=== PATIENT | female | born 1955 | race Caucasian/White ===

== ENCOUNTER 2018-08-03 09:27 | Inpatient (IN) ==
--- NOTE | 2018-08-03 11:34 | Diag Imaging Result Doc PS360 ---
EXAM: CHEST-2 VIEWS 08/03/2018 HISTORY: AMS TECHNIQUE: PA and lateral chest COMMENT: There is patchy alveolar opacity in the superior segments of both lower lobes as well as in the lingula. The heart size and pulmonary vascularity are within normal limits. IMPRESSION: Pulmonary edema and/or pneumonia. Electronically signed by Baljeet Fong 08/03/2018 11:32 AM
--- NOTE | 2018-08-03 11:43 | EKG Report ---
Test Performed on : 08/03/2018 11:16:44 AM Test Reason : AMS Blood Pressure : / mmHG Vent. Rate : 068 BPM Atrial Rate : 068 BPM P-R Int : 186 ms QRS Dur : 092 ms QT Int : 394 ms P-R-T Axes : 058 053 028 degrees QTc Int : 418 ms Sinus rhythm. with premature atrial complexes. Possible Left atrial enlargement Low voltage QRS Borderline ECG No previous ECGs available Confirmed by Leanne LOTT, Alex Leonard ([id number]) on 08/03/2018 3:19:49 PM
[2018-08-03] MEDS ORDERED: NS + KCL 20 MEQ 1,000 ML IV SCH (12:00)
--- NOTE | 2018-08-03 12:09 | Diag Imaging Result Doc PS360 ---
EXAM: CT HEAD W/O CONTRAST INDICATION: AMS TECHNIQUE: This exam was performed using automated exposure control, adjustment of mA or kV according to patient size, and/or use of iterative reconstruction technique. COMPARISON: None. FINDINGS: There is mild brain atrophy. There is no definite acute infarct given the limited sensitivity of CT versus MRI. There is no discrete intracranial mass, mass effect, or intracranial hemorrhage. The surrounding soft tissues and bony structures are essentially unremarkable. IMPRESSION: Mild brain atrophy but no definite acute intracranial pathology by CT. Electronically signed by Filiberto Bear 08/03/2018 12:07 PM
[2018-08-03 12:12] LABS: ALLEN TEST YES; BE 0.1 mmoll (-3.0-3.0); BLOOD TYPE ARTERIAL; HCO3-(ACT) 24.8 mmoll (20.0-26.0); METHB 0.6 % (0.0-1.5); MODALITY ROOM AIR; O2(CT) 15.6 mL/dL (15.0-23.0); PCO2(98.6) 39 mmHg (35-45); PO2(98.6) 53 mmHg (60-100); SAMPLE BLOOD; SAO2 91.2 % (95.0-100.0); THB 12.5 g/dL (11.5-17.4); pH(98.6) 7.41 (7.35-7.45)
[2018-08-03 12:15] LABS: O2HB 88.9 % (95.0-99.0)
[2018-08-03] MEDS: LOVENOX SUBQ SCH (13:11)
[2018-08-03] MEDS: SODIUM CHLORIDE 0.9% INJ SCH (13:11)
[2018-08-03] MEDS: ROCEPHIN 1 GM in NS 50 ML IV SCH (13:11)
[2018-08-03] MEDS: PROTONIX IV SCH (13:11)
[2018-08-03 14:09] LABS: BASO# 0.05 X1000 (0.0-0.2); BASO% 0.5 % (0.0-0.8); EOS# 0.07 X1000 (0.0-0.7); EOS% 0.6 % (0.0-10.0); HEMATOCRIT 36.7 % (37.0-47.0); HEMOGLOBIN 12.2 g/dL (12.0-16.0); IMM GRAN# 0.06 X1000 (0.0-0.04); IMM GRAN% 0.6 % (0.0-0.5); LYMPH# 1.28 X1000 (1.2-3.4); LYMPH% 11.9 % (20.5-51.1); MCH 32.6 PG (27-31); MCHC 33.2 g/dL (33-37); MCV 98.1 FL (81-99); MONO# 0.71 X1000 (0.11-0.59); MONO% 6.6 % (1.7-9.3); MPV 10.7 FL (7.4-10.4); NEUT# 8.61 X1000 (1.4-6.5); NEUT% 79.8 % (42.2-75.2); PLT 237 X1000 (130-400); RBC 3.74 XMIL (4.2-5.4); WBC 10.78 X1000 (4.8-10.8)
[2018-08-03 14:14] LABS: INR 0.98; PROTIME 13.7 Seconds (11.0-16.0)
[2018-08-03 14:29] LABS: ALB/GLOB RATIO 1.3; CALCIUM 9.3 mg/dL (8.8-10.2); CREATININE 1.4 mg/dL (0.5-0.9); POTASSIUM 3.1 mmol/L (3.5-5.1); TOTAL BILIRUBIN 0.56 mg/dL (0.20-1.00)
[2018-08-03 15:18] LABS: URINE SOURCE CLEAN CATCH
[2018-08-03 15:21] LABS: BILIRUBIN URINE NEGATIVE (NEGATIVE); BLOOD URINE NEGATIVE (NEGATIVE); COLOR YELLOW; GLUCOSE URINE NEGATIVE (NEGATIVE); KETONE URINE NEGATIVE (NEGATIVE); LEUKOCYTES URINE TRACE (NEGATIVE); NITRITE URINE NEGATIVE (NEGATIVE); PH URINE 5.5; PROTEIN URINE TRACE mg/dL (NEGATIVE); SP GRAVITY URINE 1.008; TURBIDITY URINE CLEAR (CLEAR); UROBILINOGEN URINE NORMAL (NORMAL)
[2018-08-03 15:22] LABS: UR EPITHELIAL CELLS <10 /HPF (<10); URINE BACTERIA NEGATIVE /HPF; URINE RBC <10 /HPF (<10); URINE WBC <10 /HPF (<10)
[2018-08-03] MEDS ORDERED: KLOR-CON PO ONE (15:42)
[2018-08-03] MEDS ORDERED: VENTOLIN HFA INH PRN (15:42)
[2018-08-03] MEDS ORDERED: MIRALAX PO PRN (15:42)
[2018-08-03] MEDS: NS + KCL 20 MEQ 1,000 ML IV SCH (19:16)
[2018-08-03] MEDS: PRAVACHOL PO SCH (20:22)
[2018-08-03] MEDS: LYRICA PO SCH (20:22)
[2018-08-03] MEDS: COENZYME Q10 PO SCH (20:22)
[2018-08-03] MEDS: LEVAQUIN 750 MG/D5W 750 MG/150 ML IVPB IV SCH (20:23)
[2018-08-03] MEDS: PERCOCET-5 PO SCH (20:23)
[2018-08-03] MEDS: DUONEB (A & A) INH SCH (22:58)
[2018-08-04] MEDS: NS + KCL 20 MEQ 1,000 ML IV SCH ×2 (01:21→16:24)
[2018-08-04] MEDS: DUONEB (A & A) INH SCH ×6 (04:29→21:10)
[2018-08-04] MEDS: LINZESS PO SCH (06:11)
[2018-08-04] MEDS: SYNTHROID PO SCH (06:11)
[2018-08-04 07:06] LABS: BASO# 0.03 X1000 (0.0-0.2); BASO% 0.4 % (0.0-0.8); EOS# 0.23 X1000 (0.0-0.7); EOS% 2.9 % (0.0-10.0); HEMATOCRIT 33.5 % (37.0-47.0); IMM GRAN# 0.09 X1000 (0.0-0.04); IMM GRAN% 1.2 % (0.0-0.5); LYMPH# 1.23 X1000 (1.2-3.4); LYMPH% 15.7 % (20.5-51.1); MCH 32.3 PG (27-31); MCHC 32.8 g/dL (33-37); MCV 98.2 FL (81-99); MONO# 0.68 X1000 (0.11-0.59); MONO% 8.7 % (1.7-9.3); MPV 10.5 FL (7.4-10.4); NEUT# 5.55 X1000 (1.4-6.5); NEUT% 71.1 % (42.2-75.2); PLT 233 X1000 (130-400); RBC 3.41 XMIL (4.2-5.4); RDW 11.8 % (11.5-14.5); WBC 7.81 X1000 (4.8-10.8)
[2018-08-04 07:45] LABS: AGAP 12; ALB/GLOB RATIO 1.3; ALBUMIN 3.5 g/dL (3.5-5.0); ALKALINE PHOSPHATASE 96 U/L (32-104); BUN 10 mg/dL (8-22); CALCIUM 8.6 mg/dL (8.8-10.2); CHLORIDE 103 mmol/L (98-107); COSMO 279; CREATININE 0.9 mg/dL (0.5-0.9); ESTIMATED GFR > 60; GLUCOSE 116 mg/dL (70-104); GOT 16 U/L (10-30); GPT 15 U/L (10-36); MAGNESIUM 1.8 mg/dL (1.5-2.7); POTASSIUM 4.2 mmol/L (3.5-5.1); SODIUM 140 mmol/L (136-145); TCO2 25 mmol/L (25-35); TOTAL BILIRUBIN 0.46 mg/dL (0.20-1.00); TOTAL PROTEIN 6.2 g/dL (6.3-8.3)
[2018-08-04] MEDS: ADVAIR 250/50 DISKUS INH SCH (07:52)
[2018-08-04] MEDS: SPIRIVA INH SCH (07:52)
--- NOTE | 2018-08-04 08:25 | Diag Imaging Result Doc PS360 ---
EXAM: CHEST-2 VIEWS INDICATION: hypoxia TECHNIQUE: 2 views COMPARISON: 08/03/2018 FINDINGS: The vague consolidations in the superior segments of both lower lobes are approximately stable. No new consolidation is identified. Cardiac silhouette is stable. IMPRESSION: Stable chest. Electronically signed by Filiberto Bear 08/04/2018 8:23 AM
[2018-08-04] MEDS: LOVENOX SUBQ SCH (10:45)
[2018-08-04] MEDS: PERCOCET-5 PO SCH ×2 (10:45→17:50)
[2018-08-04] MEDS: VITAMIN D PO SCH (10:46)
[2018-08-04] MEDS: DYAZIDE PO SCH (10:46)
[2018-08-04] MEDS: LYRICA PO SCH ×2 (10:46→20:03)
[2018-08-04] MEDS: CELEBREX PO SCH (10:46)
[2018-08-04] MEDS: THERA M PLUS PO SCH (10:46)
[2018-08-04] MEDS: SINGULAIR PO SCH (10:46)
[2018-08-04] MEDS: ROCEPHIN 1 GM in NS 50 ML IV SCH ×2 (10:47→11:25)
[2018-08-04] MEDS: PROTONIX IV SCH (10:47)
[2018-08-04] MEDS: FLONASE NAS SCH (10:47)
--- NOTE | 2018-08-04 11:05 | PROGRESS NOTE ---
DATE: 08/04/2018 SUBJECTIVE: Ms. Andrade is doing fair. The patient does have cough with scanty sputum production. The patient was complaining of not able to sleep well last night. Some leg pain. Her confusion is improving. No nausea or vomiting. No diarrhea, blood, or mucus in the stool. OBJECTIVE: Her vital signs noted. Neck supple. No JVD. Lungs: Bilateral occasional wheezing. CVS: S1 and S2 heard. Abdomen soft, globular. Bowel sounds present. Extremities: No cyanosis, clubbing. No acute DVT. TANK CAR MECHANIC: Alert, awake. Able to move all 4 limbs. LABORATORY DATA: Patient's lab data done today noted. Hemoglobin 11, hematocrit 33.5, WBC count 7.81, platelet count 233,000. Electrolytes were fairly benign. Her O2 saturation on room air at times was low. The patient is using her oxygen. PLAN: Consideration possible pneumonia. Her C-reactive protein was high. Repeat chest x-ray results reviewed. Altered mental status improving with oxygenation. Chronic pain, gastritis, and reflux disease. Overall plan discussed with the patient. I am going to ambulate the patient today. If clinical condition permits, we will plan discharging patient home soon. cc: Kurtis Lopes MD
[2018-08-04] MEDS: SODIUM CHLORIDE 0.9% INJ SCH (12:29)
[2018-08-04] MEDS: LEVAQUIN 750 MG/D5W 750 MG/150 ML IVPB IV SCH (20:03)
[2018-08-04] MEDS: PRAVACHOL PO SCH (20:03)
[2018-08-04] MEDS: COENZYME Q10 PO SCH (20:03)
[2018-08-05] MEDS: PERCOCET-5 PO SCH ×3 (03:42→20:28)
--- NOTE | 2018-08-05 03:55 | HISTORY AND PHYSICAL ---
Ms Andrade 63-year-old white female patient not feeling well last few days. The patient was complaining of feeling fatigued, tired. The patient claims she was sleeping most of time, increasing confusion, patient was disoriented, does have cough and chest congestion complaining of expectoration, feverish feeling, no typical. The patient claims she was sleeping most of the time. She had hard time even walking across the room. Urinary incontinence. The patient does have dull headache. No typical chest pain. I evaluated patient in the office. The patient claims sometimes she has to crawl to go to the bathroom she was that weak. She denied any diarrhea, no blood or mucus in the stool. No dysuria or hematuria. The patient denied using her pain medication more than prescribed. Blood pressure was law and her oral intake was poor. The patient lost some weight. No focal weakness. The patient did have generalized weakness. Because of her overall health I decided to admit patient for further care. Plan discussed with the patient and her and they are in agreement. The patient does have chronic back pain being followed up by pain managment MD. Does have at times abdominal pain, known case of COPD, chronic cough on bronchodilator treatment. The patient does have neuropathy pain in both the hand. ALLERGIES: Hydrocodone, latex and natural rubber. MEDICATIONS: Includes Lyrica, Diatide, Singulair, Flonase, Celebrex, Synthroid , Advair, Pravachol, . PAST MEDICAL HISTORY: Hypertension, hyperlipidemia, rhinitis, peripheral neuropathy, gastroesophageal reflux disease.[place] PERSONAL HISTORY: , lives with the , quit smoking in February, denied alcohol or substance use. PAST SURGICAL HISTORY: Patient had back surgery, tonsillectomy, hysterectomy, skin cancer removed, surgery for deviated nasal septum. FAMILY HISTORY: Noncontributory. PHYSICAL EXAMINATION: Middle-aged white female patient in mild distress. VITAL SIGNS: Blood pressure 108/57, pulse 126, respiration 20, temperature 98.1 degrees. SKIN: Normal turgor. No rash or petechiae. HEENT: Head atraumatic, normocephalic. [place] conjunctivae. Anicteric sclerae. Extraocular muscle movement normal. Fundus cannot be penetrated. Good oral hygiene. No tonsillopharyngeal congestion or exudate. Ears and nose benign. NECK: Supple. No JVD, thyromegaly or lymphadenopathy. CHEST: Bilateral good air entry present, bilateral occasional wheezing. CARDIOVASCULAR: S1 and S2 heard. No gallop or thrill. ABDOMEN: Soft, globular. Bowel sounds present. EXTREMITIES: No cyanosis, clubbing. No acute DVT. EQUIPMENT ASSOCIATE: Alert, awake, able to move all 4 limbs. Tenderness lumbosacral spine. LAB DATA: Leukocyte count 10.78, hemoglobin 12.2, hematocrit 36.9, platelet count 237,000, PT/INR 0.98. Blood gas did reveal hypoxemia, PA 7.41, oxyhemoglobin was 88.9 . Patient was started on oxygen. Electrolytes did reveal hypokalemia, BUN 24, creatinine 1.4 , ProBNP was 469. Urinalysis was benign. Chest x-ray did reveal possible pneumonia versus pulmonary edema. I did check her proBNP it was not impressive. I did CT scan of the head because of altered mental status and it did reveal mild brain atrophy but no definite acute intracranial pathology by CT. Patient admitted with altered mental status most likely due to hypoxemia. Patient does have chest congestion, cough, it is more suggestive of pneumonia than pulmonary edema. The patient was also hypoxemic. Her other problem includes chronic low back pain, hypothyroidism, gastritis and reflux disease, chronic low back pain, peripheral neuropathy, osteoarthritis. PLAN: Admit patient. IV hydration, IV antibiotics, bronchodilator treatment. Patient did have hypokalemia, will supplement potassium. Overall plan discussed with the patient and she is in agreement. cc: Kurtis Lopes MD [facility]
[2018-08-05] MEDS: DUONEB (A & A) INH SCH ×4 (05:56→21:05)
[2018-08-05] MEDS: SYNTHROID PO SCH (06:08)
[2018-08-05] MEDS: LINZESS PO SCH (06:08)
--- NOTE | 2018-08-05 07:19 | PROGRESS NOTE ---
DATE: 08/05/2018 SUBJECTIVELY: Ms. Andrade is doing fair. The patient is still feels some weakness. No high- grade fever or chills. Does have cough with yellowish expectoration. No nausea or vomiting. No dysuria or hematuria. Denied any diarrhea. Her vital signs noted. Blood pressure is low at times.Neck: Supple. No JVD. Lungs: Bilateral good air entry present. Few inspiratory crepitations. CVS: S1 and S2 heard. Abdomen: Soft, globular. Bowel sounds present. Extremities: No cyanosis, clubbing. No acute DVT. REGIONAL OPERATIONS MANAGER: Alert, awake. Able to move all 4 limbs. Vague tenderness lumbosacral spine. CONSIDERATION: 1. Bronchopneumonia. 2. Chronic low back pain. 3. Gastritis and reflux disease. 4. Osteoarthritis. 5. Hypothyroidism. PLAN: I am going to continue current treatment. Ambulate the patient in the room and hallway. Check appropriate lab in the morning. If clinical condition permits, we will plan discharging patient home maybe tomorrow. I am going to evaluate her for home oxygen requirement. cc: Kurtis Lopes MD
[2018-08-05] MEDS: ADVAIR 250/50 DISKUS INH SCH (07:49)
[2018-08-05] MEDS: SPIRIVA INH SCH (07:49)
[2018-08-05] MEDS: CELEBREX PO SCH (08:43)
[2018-08-05] MEDS: VITAMIN D PO SCH (08:43)
[2018-08-05] MEDS: THERA M PLUS PO SCH (08:43)
[2018-08-05] MEDS: LYRICA PO SCH ×2 (08:43→20:28)
[2018-08-05] MEDS: SINGULAIR PO SCH (08:43)
[2018-08-05] MEDS: FLONASE NAS SCH (08:44)
[2018-08-05] MEDS: DYAZIDE PO SCH (08:44)
[2018-08-05] MEDS: LOVENOX SUBQ SCH (11:08)
[2018-08-05] MEDS: ROCEPHIN 1 GM in NS 50 ML IV SCH (11:08)
[2018-08-05] MEDS: SODIUM CHLORIDE 0.9% INJ SCH (11:09)
[2018-08-05] MEDS: NS + KCL 20 MEQ 1,000 ML IV SCH (11:09)
[2018-08-05] MEDS: PROTONIX IV SCH (11:09)
[2018-08-05] MEDS: PRAVACHOL PO SCH (20:27)
[2018-08-05] MEDS: COENZYME Q10 PO SCH (20:28)
[2018-08-06] MEDS: PERCOCET-5 PO SCH (03:38)
[2018-08-06 04:37] VITALS: BP 108/58
[2018-08-06] MEDS: DUONEB (A & A) INH SCH (05:59)
[2018-08-06] MEDS: NS + KCL 20 MEQ 1,000 ML IV SCH (06:07)
[2018-08-06] MEDS: LINZESS PO SCH (06:07)
[2018-08-06] MEDS: SYNTHROID PO SCH (06:07)
--- NOTE | 2018-08-06 07:12 | PROGRESS NOTE ---
DATE: 08/06/2018 SUBJECTIVE: Ms. Andrade is feeling much better. Her shortness of breath improved. The patient was able to ambulate in the hallway multiple times yesterday. She does have chronic low back pain. Chest congestion and cough improved. Her confusion is improving. Her O2 saturation last night on room air was satisfactory. No nausea or vomiting. Oral intake is fair. OBJECTIVE: Vital signs: Noted. Neck: Supple. No JVD. Lungs: Bilateral good air entry present. CVS: S1 and S2 heard. Abdomen: Soft, nontender. Bowel sounds present. Tenderness in the lumbosacral spine. WILDLAND FIRE FIGHTER: Alert, awake able to move all 4 limbs. LAB DATA: Lab data done on August first reviewed patient admitted with altered mental status, found to have pneumonia, clinically doing much better. Her altered mental status improved. Her O2 saturation is satisfactory. C-reactive protein was elevated. I am going to recheck as an outpatient. ASSESSMENT AND PLAN: 1. Chronic low back pain. 2. Hyperlipidemia. 3. Chronic obstructive pulmonary disease. 4. Gastritis and reflux disease. Overall the patient received maximum benefit of hospitalization. The patient is eager to go home. I am going to discharge her home on Levaquin, bronchodilator treatment. Continue home medicine. Follow up with me in a week. The patient quit smoking many months ago. Encouraged her not to restart. In case of more distress, call us back or go to emergency room. Overall discharge condition satisfactory. cc: Kurtis Lopes MD
[2018-08-06 07:29] LABS: BASO# 0.08 X1000 (0.0-0.2); EOS# 0.32 X1000 (0.0-0.7); HEMATOCRIT 37.6 % (37.0-47.0); HEMOGLOBIN 12.2 g/dL (12.0-16.0); IMM GRAN# 0.29 X1000 (0.0-0.04); IMM GRAN% 3.6 % (0.0-0.5); LYMPH% 24.7 % (20.5-51.1); MCH 32.1 PG (27-31); MCHC 32.4 g/dL (33-37); MCV 98.9 FL (81-99); MONO# 0.65 X1000 (0.11-0.59); MPV 9.9 FL (7.4-10.4); NEUT# 4.75 X1000 (1.4-6.5); NEUT% 58.7 % (42.2-75.2); PLT 349 X1000 (130-400); RDW 12.3 % (11.5-14.5); WBC 8.09 X1000 (4.8-10.8)
[2018-08-06 07:38] LABS: ALB/GLOB RATIO 0.8; ALBUMIN 3.8 g/dL (3.5-5.0); POTASSIUM 3.9 mmol/L (3.5-5.1); TOTAL BILIRUBIN 0.25 mg/dL (0.20-1.00); TOTAL PROTEIN 8.5 g/dL (6.3-8.3)
[2018-08-06] MEDS: SPIRIVA INH SCH (07:56)
[2018-08-06] MEDS: ADVAIR 250/50 DISKUS INH SCH (07:56)
[2018-08-06] MEDS ORDERED: LEVAQUIN PO SCH (09:00)
[2018-08-06] MEDS ORDERED: PNEUMOVAX 23 IM ONE (09:33)
[2018-08-06] MEDS: LYRICA PO SCH (09:41)
[2018-08-06] MEDS: CELEBREX PO SCH (09:41)
[2018-08-06] MEDS: FLONASE NAS SCH (09:41)
[2018-08-06] MEDS: SINGULAIR PO SCH (09:42)
[2018-08-06] MEDS: THERA M PLUS PO SCH (09:42)
[2018-08-06] MEDS: VITAMIN D PO SCH (09:42)
[2018-08-06] MEDS: DYAZIDE PO SCH (09:42)
[2018-08-06 10:10] LABS: C REACTIVE PROT QUANT 43.26 mg/L (0.00-5.00)
--- NOTE | 2018-08-30 22:40 | DISCHARGE SUMMARY ---
ADMISSION DATE: 08/03/2018 DISCHARGE DATE: 08/06/2018 FINAL DISCHARGE DIAGNOSES: 1. Metabolic encephalopathy secondary to pneumonia. 2. Chronic obstructive pulmonary disease. 3. Hypoxemia. 4. Hypertension. 5. Hyperlipidemia. 6. Peripheral neuropathy. 7. Gastroesophageal reflux disease. 8. Migraine. 9. Chronic low back pain. HISTORY OF PRESENT ILLNESS: Ms. Andrade is a 63-year-old white female patient complaining of feeling fatigued, tired, no energy. The patient felt excessive somnolence, increasing confusion, at times disorientation. The patient did have cough, chest congestion. The patient was getting short of breath walking across the room. The patient also had urinary incontinence and weakness. I evaluated the patient in the office, admitted her for further care. HOSPITAL COURSE: The patient was admitted to telemetry bed. We did appropriate lab. The patient was given IV antibiotics, breathing treatment, small dose of steroid, symptomatic treatment. Her clinical condition stabilized, gradually improved. The patient was able to ambulate well and gradually improved. The patient was ambulating better. Her shortness of breath improved, and I decided to discharge the patient home. The patient's mental status also improved. The patient feels much more comfortable to go home. LABORATORY DATA AND IMAGING STUDIES: Lab data revealed WBC count 8.09, hemoglobin 12.2, hematocrit 37.6, platelet count 349,000. PT/INR 0.98. Blood gas: pH 7.41, pCO2 of 39, pO2 was 53; this was done on room air. Her electrolytes were fairly within acceptable range. Initial BUN was 24, creatinine 1.4. Potassium was 3.1 which showed improvement. Potassium improved to 3.9, BUN came down to 12, creatinine 1. Her C-reactive protein on admission was 130 which came down to 43. ProBNP was 469. Urinalysis was benign. I did a CT scan of the head which revealed mild brain atrophy but no definite acute intracranial pathology. Chest x-ray revealed stable chest. On initial chest x-ray, there was possibility of pulmonary edema and/or pneumonia. OVERALL DISCHARGE CONDITION: Satisfactory. DISCHARGE INSTRUCTIONS: Encouraged patient to take medicine regularly and bronchodilator treatment. Fall precaution. Follow up with me as scheduled. In case of more distress, call us back or go to the emergency room. cc: Kurtis Lopes MD
== END 2018-08-06 10:27 | disposition home or self-care (01) | DRG 193 ==
LOC: DIRADM 09:27 → 3N 10:48
PROVIDERS: ADMIT Internal Medicine; ATTEND Internal Medicine
CPT/HCPCS: 70450; 71020; 71046; 80053; 81001; 82550; 82805; 83735; 83880; 84484; 85025; 85610; 86140; 87088; 90732; 93005; 93010; 94640; 94761; 94762; A9270; C9113; J0696; J1650; J1956; J3480; S0164